=== PATIENT | female | born 1995 | race Caucasian/White ===

== ENCOUNTER 2024-07-24 19:44 | Emergency (ER) | payer BC ==
[2024-07-24] MEDS ORDERED: Ketorolac Tromethamine 30 MG (1 mL) VIAL ONE (20:20)
[2024-07-24] MEDS ORDERED: Metoclopramide HCl 10 MG (2 mL) VIAL ONE (20:20)
[2024-07-24] MEDS ORDERED: Metoclopramide HCl 10 MG TAB ONE (20:25)
== END 2024-07-24 21:52 | disposition home or self-care (01) ==
LOC: ERS 19:44
DX: B34.9 Viral infection, unspecified (principal)
CPT/HCPCS: 71046; 96372; J1885; J2765